=== PATIENT | male | born 2005 | race African-American/Black ===

== ENCOUNTER 2024-05-05 09:58 | Emergency (ER) | payer SELFPAY ==
[2024-05-05] MEDS: Sodium Chloride 0.9% 1,000 ML IV ONE ×2 (10:38→14:02)
[2024-05-05] MEDS: Ketorolac 30 MG/ML SDV IVPUSH ONE (10:39)
[2024-05-05] MEDS: Ondansetron 4 MG/2 ML SDV IVPUSH ONE (10:40)
[2024-05-05 10:47] LABS: BASOPHILS ABSOLUTE AUTO 0.03 K/uL (0.00-0.20); BASOPHILS PERCENT AUTO 0.2 % (0.0-1.0); HEMATOCRIT 47.2 % (42.0-52.0); HEMOGLOBIN 16.5 g/dL (14.0-18.0); IMMATURE GRAN ABSOLUTE AUTO 0.09 K/uL (0.00-0.05); IMMATURE GRAN PERCENT AUTO 0.6 % (0.0-0.4); LYMPHOCYTES ABSOLUTE AUTO 1.02 K/uL (1.00-4.80); LYMPHOCYTES PERCENT AUTO 6.4 % (24.0-44.0); MEAN CORPUSCULAR HEMOGLOBIN 29.3 pg (28.0-32.0); MEAN CORPUSCULAR VOLUME 83.8 fL (83.0-99.0); MEAN PLATELET VOLUME 9.4 fL (9.4-12.4); MONOCYTES ABSOLUTE AUTO 1.13 K/uL (0.00-0.80); MONOCYTES PERCENT AUTO 7.1 % (0.0-8.0); NEUTROPHILS ABSOLUTE AUTO 13.66 K/uL (1.80-7.70); NEUTROPHILS PERCENT AUTO 85.7 % (41.0-71.0); PLATELET COUNT,PLT 253 K/uL (150-400); RED BLOOD CELL COUNT 5.63 M/uL (4.52-5.90); WHITE BLOOD CELL COUNT,WBC 15.93 K/uL (3.9-11.3)
[2024-05-05 11:14] LABS: A/G RATIO 1.1 (0.9-1.6); ACETAMINOPHEN < 2.0 ug/mL; ALANINE AMINOTRANSFERASE,ALT 40 IU/L (14-63); ALBUMIN 4.7 g/dL (3.4-5.0); ALKALINE PHOSPHATASE 65 U/L (46-116); ASPARTATE AMNIOTRANSFERASE,AST 5 IU/L (15-37); BILIRUBIN TOTAL 1.6 mg/dL (0.2-1.0); BLOOD UREA NITROGEN,BUN 10 mg/dL (7.0-18.0); CALCIUM 10.4 mg/dL (8.5-10.1); CARBON DIOXIDE,CO2 22.3 mmol/L (21.0-32.0); CHLORIDE,CL 99 mmol/L (98-107); CREATININE 1.2 mg/dL (0.8-1.3); EST CRCL DRUG DOSING (CG) 92.08 mL/min; GLUCOSE RANDOM 144 mg/dL (74-106); LIPASE 18 U/L (16-77); SALICYLATE <0.2 mg/dL (0.0-20.0); SODIUM,NA 137 mmol/L (136-148)
[2024-05-05] MEDS: Iopamidol 755 MG/ML 500 ML Multipack Bottle IVPUSH STA (11:16)
[2024-05-05 11:18] LABS: ESTIMATED GFR 89 mL/min (>60)
[2024-05-05 12:00] LABS: APPEARANCE,URINE CLEAR; BILIRUBIN,URINE NEGATIVE (NEGATIVE); COLOR,URINE YELLOW; GLUCOSE,URINE NEGATIVE (NEGATIVE); KETONES,URINE >=80 mg/dL (NEGATIVE); LEUKOCYTE ESTERASE,URINE NEGATIVE (NEGATIVE); NITRITE,URINE NEGATIVE (NEGATIVE); OCCULT BLOOD,URINE NEGATIVE (NEGATIVE); PH,URINE 7.5 (5.0-8.0); PROTEIN,URINE NEGATIVE (NEGATIVE); UROBILINOGEN,URINE 0.2 EU/dL (<2.0)
[2024-05-05 12:27] LABS: AMPHETAMINES SCREEN, URINE NEGATIVE (CUTOFF=500); BARBITURATE SCREEN,URINE NEGATIVE (CUTOFF=200); BENZODIAZEPINES SCREEN,URINE NEGATIVE (CUTOFF=150); BUPRENORPHINE SCREEN,URINE NEGATIVE (CUTOFF=10); METHADONE SCREEN, URINE NEGATIVE (CUTOFF=200); METHAMPHETAMINES SCREEN, URINE NEGATIVE (CUTOFF=500); OXYCODONE SCREEN,URINE NEGATIVE (CUT0FF=100); PCP SCREEN,URINE NEGATIVE (CUTOFF=25); THC SCREEN,URINE 20 NG/ML PRESUMPTIVE POSITIVE (CUTOFF=50)
[2024-05-05] MEDS: Gadoteridol 279.3 MG/ML 20 ML SDV IVPUSH ONE (13:24)
[2024-05-05] MEDS ORDERED: Sodium Chloride 0.9% 500 ML IV SCH (13:45)
[2024-05-05] MEDS: Amoxicillin 500 MG Cap PO ONE (14:22)
== END 2024-05-05 14:53 | disposition home or self-care (01) ==
LOC: MW.ED 09:58
DX: K76.9 Liver disease, unspecified (principal); K04.7 Periapical abscess without sinus; Z79.899 Other long term (current) drug therapy; Z75.8 Other problems related to medical facilities and other health care
CPT/HCPCS: 36415; 74177; 74183; 80053; 80143; 80179; 80305; 81003; 83690; 85025; 87428; 93005; 96361; 96374; 96375; 99285; A9270; A9579; J1885; J2405; J7030; Q9967; 99283